=== PATIENT | female | born 1960 | race Caucasian/White ===

== ENCOUNTER 2020-11-03 16:23 | Emergency (ER) | payer MEDICAID ==
[~2020-11-03] VITALS: Ht 172.7 cm; Wt 70.0 kg
[~2020-11-03 16:23] MED LIST: CEPH-368 PO; CIPR500T87 PO; RANI-467 PO; SULF-23 PO
--- NOTE | 2020-11-03 17:04 | NUR ---
PRODUCTION ENGINEER TRACK: PT TO ROOM FROM [facility] Addendum: 11/03/20 at 1705 by MELISSA PT TO ROOM VIA W/C
--- NOTE | 2020-11-03 17:13 | NUR ---
PT STATES NICOLAS WENT [facility] FOR HER FEET AND AND WOUNDS AND A FEW ON HER LEGS THE SIZE OF A DIME. SHE WAS CALLED BACK AND WAS ADMITTED ON THE AFTER HER BLOOD WORK CAME BACK AND WAS THERE FOR 5 DAYS THEN TRANSFERED TO [facility] ON [address] WAS THERE UNTIL July. PT WAS TOLD TO SEE PRIMARY CARE TO GET A REFERERAL TO WOUND CARE, HAS BEEN GOING BUT STATES WOUNDS ARE GETTING BETTER AND CAN'T TOLERATE WHEN THEY DEBRI THE WOUND. PT STATES HAS BEEN ON A LOT OF ANTIBIOTICS. PT STATES CAME IN TODAY BECAUSE HER LEGS ARE GETTING WORSE AND STATES THEY ARE "INFECTED" PT STATES ALSO HAS EITHER A BAD GROIN PULL OR A HERNIA.
--- NOTE | 2020-11-03 17:26 | NUR ---
PT STATES DOES USE HEROIN WEEKLY AND HER MAIN CONCERN IS LEFT FOOT SHE BELIEVES IS INFECTED PROVIDER AT BEDSIDE.
[2020-11-03 18:36] LABS: BASOPHILS % (AUTO) 1 % (0-1); EOSINOPHILS % (AUTO) 5 % (1-7); LYMPHOCYTES % (AUTO) 27 % (22-44); MEAN CORPUSCULAR HEMOGLOBIN 25.8 pg (27.0-34.8); MEAN CORPUSCULAR HGB CONC 33.5 g/dL (32.4-35.8); MEAN PLATELET VOLUME 6.4 fL (7.4-10.4); MONOCYTES % (AUTO) 7 % (2-9); NEUTROPHILS % (AUTO) 61 % (42-75); PLATELET COUNT 251 x10^3/uL (130-400); RED BLOOD COUNT 4.64 x10^6/uL (3.82-5.3); RED CELL DISTRIBUTION WIDTH 15.6 % (9.6-15.2)
--- NOTE | 2020-11-03 18:37 | NUR ---
OFF FLOOR TO ULTRASOUND
[2020-11-03 18:46] LABS: ALANINE AMINOTRANSFERASE 48 U/L (12-78); ALBUMIN 3.1 g/dL (3.4-5.0); ANION GAP 6 mmol/L (5-15); CALCIUM 8.8 mg/dL (8.5-10.1); CHLORIDE 105 mmol/L (98-107); CREATININE 0.62 mg/dL (0.55-1.02)
[2020-11-03 18:48] LABS: ALKALINE PHOSPHATASE 201 U/L (45-117); BILIRUBIN,TOTAL 0.6 mg/dL (0.2-1.0); TOTAL PROTEIN 8.5 g/dL (6.4-8.2)
--- NOTE | 2020-11-03 18:56 | NUR ---
REPORT GIVEN TO JOSE GONSALES TO ASSUME CARE OF PT.
--- NOTE | 2020-11-03 19:16 | NUR ---
Waiting for recheck/u/s report.
[2020-11-03] MEDS ORDERED: ONDANSETRON 2MG/ML, 2ML IVPush ONE (19:30)
[2020-11-03] MEDS ORDERED: MORPHINE SULFATE 4 MG/ML, 1ML IVPush PRN (19:30)
--- NOTE | 2020-11-03 19:31 | NUR ---
Pt requested to take her own tylenol/motrin, provided water. Dr beck to reassess, ok to cancel IV start and IV morphine/zofran; will po meds if needed.
[2020-11-03 19:55] VITALS: BP 152/89
== END 2020-11-03 20:01 | disposition home or self-care (01) ==
LOC: ED 19:42
DX: L03.116 Cellulitis of left lower limb (principal); L03.115 Cellulitis of right lower limb; L97.828 Non-pressure chronic ulcer of other part of left lower leg with other specified severity; L97.818 Non-pressure chronic ulcer of other part of right lower leg with other specified severity; F11.129 Opioid abuse with intoxication, unspecified; Z72.9 Problem related to lifestyle, unspecified; F17.200 Nicotine dependence, unspecified, uncomplicated
CPT/HCPCS: 36415; 80053; 85025; 93970; 99284

== ENCOUNTER 2020-11-12 08:28 | Outpatient (CLI) | payer MEDICAID | END 2020-11-12 23:59 | disposition home or self-care (01) | LOC: WOUND 08:28 | PROVIDERS: ATTEND Internal Medicine | DX: I87.333 Chronic venous hypertension (idiopathic) with ulcer and inflammation of bilateral lower extremity (principal); L89.893 Pressure ulcer of other site, stage 3; L97.512 Non-pressure chronic ulcer of other part of right foot with fat layer exposed; L97.522 Non-pressure chronic ulcer of other part of left foot with fat layer exposed; L97.412 Non-pressure chronic ulcer of right heel and midfoot with fat layer exposed; L97.222 Non-pressure chronic ulcer of left calf with fat layer exposed; L97.212 Non-pressure chronic ulcer of right calf with fat layer exposed; L97.822 Non-pressure chronic ulcer of other part of left lower leg with fat layer exposed; L97.812 Non-pressure chronic ulcer of other part of right lower leg with fat layer exposed; L03.115 Cellulitis of right lower limb; L03.116 Cellulitis of left lower limb; F11.129 Opioid abuse with intoxication, unspecified; F19.10 Other psychoactive substance abuse, uncomplicated; J44.9 Chronic obstructive pulmonary disease, unspecified; Z86.14 Personal history of Methicillin resistant Staphylococcus aureus infection; Z87.891 Personal history of nicotine dependence; Z88.1 Allergy status to other antibiotic agents; Z88.2 Allergy status to sulfonamides; Z88.8 Allergy status to other drugs, medicaments and biological substances | CPT/HCPCS: 11042; 11045; 99215 ==

== ENCOUNTER 2020-11-16 12:52 | Outpatient (CLI) | payer MEDICAID | END 2020-11-16 23:59 | disposition home or self-care (01) | LOC: WOUND 12:52 | PROVIDERS: ATTEND Internal Medicine Cardiovascular Disease | DX: I87.313 Chronic venous hypertension (idiopathic) with ulcer of bilateral lower extremity (principal); L97.222 Non-pressure chronic ulcer of left calf with fat layer exposed; L97.212 Non-pressure chronic ulcer of right calf with fat layer exposed; L97.812 Non-pressure chronic ulcer of other part of right lower leg with fat layer exposed; L03.115 Cellulitis of right lower limb; L03.116 Cellulitis of left lower limb; F19.10 Other psychoactive substance abuse, uncomplicated | CPT/HCPCS: 29580; 29581; 99215 ==

== ENCOUNTER 2020-12-03 15:09 | Inpatient (IN) | payer MEDICAID ==
[~2020-12-03] VITALS: Ht 172.7 cm; Wt 76.1 kg
--- NOTE | 2020-12-03 15:46 | NUR ---
PT CAME IN CO NON HEALING LOWER LEG ULCERS. PT WAS SENT FROM WOUND CARE. PT KEPT HER BANDAGES ON FOR OVER 2 WEEKS. PT HAS MULTIPLE NON HEALING ULCERS WITH DRAINAGE AND A FOUL ODOR ON BOTH LOWER LEGS. PT REPORTS SHE HAS BEEN DEALING WITH THESE WOUNDS FOR OVER A YEAR.
[2020-12-03] MEDS ORDERED: ACETAMINOPHEN 500 MG TABLET ONE (15:50)
[2020-12-03] MEDS ORDERED: ACETAMINOPHEN 500 MG TABLET PO ONE (16:00)
--- NOTE | 2020-12-03 16:01 | NUR ---
IV STARTED. BLOOST CULTURES X2 DRAWN
[2020-12-03 16:11] LABS: BASOPHILS % (AUTO) 0 % (0-1); EOSINOPHILS % (AUTO) 1 % (1-7); LYMPHOCYTES % (AUTO) 31 % (22-44); MEAN CORPUSCULAR HEMOGLOBIN 26.1 pg (27.0-34.8); MEAN PLATELET VOLUME 6.6 fL (7.4-10.4); MONOCYTES % (AUTO) 5 % (2-9); NEUTROPHILS % (AUTO) 64 % (42-75); PLATELET COUNT 279 x10^3/uL (130-400); RED BLOOD COUNT 4.64 x10^6/uL (3.82-5.3); RED CELL DISTRIBUTION WIDTH 15.5 % (9.6-15.2)
[2020-12-03 16:12] LABS: HCT (SEDRATE) 35.8 % (34.6-47.8)
[2020-12-03 16:23] LABS: ALBUMIN 3.5 g/dL (3.4-5.0); ANION GAP 4 mmol/L (5-15); CALCIUM 9.4 mg/dL (8.5-10.1); CHLORIDE 107 mmol/L (98-107); CREATININE 0.71 mg/dL (0.55-1.02)
[2020-12-03] MEDS ORDERED: VANCOMYCIN PER PHARMACY MC ONE (17:30)
[2020-12-03] MEDS ORDERED: POTASSIUM CHLORIDE 20 MEQ in SODIUM CHLORIDE 0.9% 250 ML IV ONE (17:30)
[2020-12-03] MEDS ORDERED: POTASSIUM CHLORIDE 20 MEQ TAB.ER.PRT PO ONE (17:30)
[2020-12-03] MEDS ORDERED: AMPICILLIN/SULBACTAM 3 GM in SODIUM CHLORIDE 0.9% 100 ML IV ONE (17:30)
[2020-12-03] MEDS ORDERED: VANCOMYCIN 1,800 MG in SODIUM CHLORIDE 0.9% 250 ML IV ONE (18:00)
[2020-12-03] MEDS ORDERED: VANCOMYCIN PER PHARMACY MC PRN (18:30)
[2020-12-03] MEDS ORDERED: POLYETHYLENE GLYCOL 17 GM PACKET PO PRN (18:30)
[2020-12-03] MEDS ORDERED: ONDANSETRON ODT 4 MG PO PRN (18:30)
[2020-12-03] MEDS ORDERED: KETOROLAC 30 MG/1 ML IV PRN (18:30)
[2020-12-03] MEDS ORDERED: ENALAPRILAT 1.25 MG/ML, 2ML IVPush PRN (18:30)
[2020-12-03] MEDS ORDERED: ONDANSETRON 2MG/ML, 2ML IVPush PRN (18:30)
[2020-12-03] MEDS ORDERED: BISACODYL 10 MG SUPP PR PRN (18:30)
[2020-12-03] MEDS ORDERED: ACETAMINOPHEN 325 MG TABLET PO PRN (18:30)
[2020-12-03] MEDS ORDERED: LABETALOL 5MG/ML, 20ML IVPush PRN (18:30)
[2020-12-03 18:31] VITALS: BP 168/101
[2020-12-03] MEDS: morphine SULFATE 10 MG/ML, 1ML IVPush PRN ×2 (18:42→22:12)
[2020-12-03] MEDS: ENOXAPARIN 40 MG/0.4 ML SQ SCH (18:43)
[2020-12-03 19:40] VITALS: BP 143/78
[2020-12-03] MEDS ORDERED: PHARMACOKINETIC MONITORING MC PRN (20:00)
[2020-12-03] MEDS ORDERED: PHARMACOKINETIC CONSULTATION MC ONE (20:00)
[2020-12-03] MEDS: NICOTINE 7 MG/24 HR PATCH.TD24 TD SCH (20:28)
[2020-12-03] MEDS: NS + 20MEQ KCL 1,000 ML IV SCH (20:28)
[2020-12-03] MEDS: PIPERACILLIN/TAZO 3.375 GM in DEXTROSE 5% 50 ML IV SCH (20:28)
[2020-12-03] MEDS: POTASSIUM CHLORIDE 20 MEQ TAB.ER.PRT PO SCH (22:13)
[2020-12-03] MEDS: IRON SUCROSE COMPLEX 100MG/5ML IV SCH (23:32)
[2020-12-04] MEDS: morphine SULFATE 10 MG/ML, 1ML IVPush PRN ×4 (01:40→19:54)
[2020-12-04 02:15] VITALS: BP 150/76
[2020-12-04] MEDS: PIPERACILLIN/TAZO 3.375 GM in DEXTROSE 5% 50 ML IV SCH ×4 (03:01→22:57)
[2020-12-04] MEDS ORDERED: DIPHENHYDRAMINE 25 MG CAPSULE PO ONE (04:30)
[2020-12-04] MEDS: NS + 20MEQ KCL 1,000 ML IV SCH ×2 (05:21→20:40)
[2020-12-04 05:57] LABS: BASOPHILS % (AUTO) 1 % (0-1); EOSINOPHILS % (AUTO) 3 % (1-7); LYMPHOCYTES % (AUTO) 31 % (22-44); MEAN CORPUSCULAR HEMOGLOBIN 26.4 pg (27.0-34.8); MEAN CORPUSCULAR HGB CONC 34.5 g/dL (32.4-35.8); MEAN PLATELET VOLUME 6.6 fL (7.4-10.4); MONOCYTES % (AUTO) 8 % (2-9); NEUTROPHILS % (AUTO) 57 % (42-75); PLATELET COUNT 244 x10^3/uL (130-400); RED BLOOD COUNT 4.71 x10^6/uL (3.82-5.3); RED CELL DISTRIBUTION WIDTH 15.6 % (9.6-15.2)
[2020-12-04 06:09] LABS: CHLORIDE 106 mmol/L (98-107)
[2020-12-04 06:13] LABS: ANION GAP 4 mmol/L (5-15); CALCIUM 9.1 mg/dL (8.5-10.1); CREATININE 0.47 mg/dL (0.55-1.02)
[2020-12-04 07:01] VITALS: BP 171/90
[2020-12-04] MEDS: IRON SUCROSE COMPLEX 100MG/5ML IV SCH (08:22)
[2020-12-04] MEDS: POTASSIUM CHLORIDE 20 MEQ TAB.ER.PRT PO SCH ×2 (08:22→11:58)
[2020-12-04] MEDS: VANCOMYCIN 1,400 MG in SODIUM CHLORIDE 0.9% 250 ML IV SCH ×2 (08:22→20:40)
[2020-12-04] MEDS: SENNA/DOCUSATE TABLET PO SCH (08:23)
[2020-12-04] MEDS ORDERED: MAGNESIUM SULFATE PMX 2GM/50ML 50 ML IV ONE (09:30)
[2020-12-04 13:54] VITALS: BP 156/90
[2020-12-04] MEDS ORDERED: GADOTERATE 7.5 MMOL/15ML SYR ONE (14:35)
[2020-12-04 19:17] VITALS: BP 174/90
[2020-12-04] MEDS: NICOTINE 7 MG/24 HR PATCH.TD24 TD SCH (19:53)
[2020-12-04] MEDS: ENOXAPARIN 40 MG/0.4 ML SQ SCH (19:54)
[2020-12-04] MEDS ORDERED: MELATONIN 5 MG TABLET PO ONE (23:00)
[2020-12-05] MEDS: morphine SULFATE 10 MG/ML, 1ML IVPush PRN ×6 (00:31→23:51)
[2020-12-05 00:44] VITALS: BP 168/86
[2020-12-05] MEDS: NS + 20MEQ KCL 1,000 ML IV SCH ×2 (04:00→23:22)
[2020-12-05] MEDS: PIPERACILLIN/TAZO 3.375 GM in DEXTROSE 5% 50 ML IV SCH ×4 (04:56→23:22)
[2020-12-05 06:00] LABS: BASOPHILS % (AUTO) 1 % (0-1); EOSINOPHILS % (AUTO) 2 % (1-7); LYMPHOCYTES % (AUTO) 28 % (22-44); MEAN CORPUSCULAR HEMOGLOBIN 26.4 pg (27.0-34.8); MEAN CORPUSCULAR HGB CONC 34.2 g/dL (32.4-35.8); MEAN PLATELET VOLUME 6.9 fL (7.4-10.4); MONOCYTES % (AUTO) 8 % (2-9); NEUTROPHILS % (AUTO) 62 % (42-75); PLATELET COUNT 309 x10^3/uL (130-400); RED BLOOD COUNT 5.39 x10^6/uL (3.82-5.3); RED CELL DISTRIBUTION WIDTH 15.4 % (9.6-15.2)
[2020-12-05 06:06] LABS: CHLORIDE 102 mmol/L (98-107)
[2020-12-05 06:15] LABS: ALANINE AMINOTRANSFERASE 39 U/L (12-78); ALBUMIN 3.5 g/dL (3.4-5.0); ALKALINE PHOSPHATASE 167 U/L (45-117); ANION GAP 7 mmol/L (5-15); BILIRUBIN,TOTAL 0.8 mg/dL (0.2-1.0); CALCIUM 9.5 mg/dL (8.5-10.1); CREATININE 0.64 mg/dL (0.55-1.02); TOTAL PROTEIN 9.4 g/dL (6.4-8.2)
[2020-12-05] MEDS ORDERED: POTASSIUM CHLORIDE 20 MEQ TAB.ER.PRT PO ONE (07:00)
[2020-12-05] MEDS: POTASSIUM CHLORIDE 20 MEQ TAB.ER.PRT PO SCH (07:17)
[2020-12-05] MEDS: IRON SUCROSE COMPLEX 100MG/5ML IV SCH (07:18)
[2020-12-05 07:49] VITALS: BP 148/82
[2020-12-05] MEDS ORDERED: GADOTERATE 7.5 MMOL/15ML SYR ONE (08:20)
[2020-12-05] MEDS: SENNA/DOCUSATE TABLET PO SCH (08:53)
[2020-12-05] MEDS: VANCOMYCIN 1,400 MG in SODIUM CHLORIDE 0.9% 250 ML IV SCH ×2 (09:11→21:05)
[2020-12-05 12:25] VITALS: BP 150/85
[2020-12-05 20:04] VITALS: BP 161/92
[2020-12-05] MEDS: NICOTINE 7 MG/24 HR PATCH.TD24 TD SCH (20:16)
[2020-12-05] MEDS: ENOXAPARIN 40 MG/0.4 ML SQ SCH (20:17)
[2020-12-05] MEDS ORDERED: ZOLPIDEM 5MG TABLET PO SCH (21:00)
[2020-12-06] MEDS ORDERED: DIPHENHYDRAMINE 50 MG/ML, 1ML IVPush ONE (02:00)
[2020-12-06] MEDS: PIPERACILLIN/TAZO 3.375 GM in DEXTROSE 5% 50 ML IV SCH ×2 (05:33→11:00)
[2020-12-06] MEDS: morphine SULFATE 10 MG/ML, 1ML IVPush PRN ×2 (05:45→15:20)
[2020-12-06] MEDS ORDERED: EPINEPHRINE 1 MG/ML, 1ML ONE (06:40)
[2020-12-06] MEDS ORDERED: BUPIVACAINE/PF 0.5% ONE (06:40)
[2020-12-06] MEDS ORDERED: CHLORHEXIDINE 15 ML UDC ONE (07:03)
[2020-12-06] MEDS ORDERED: MIDAZOLAM 1 MG/ML, 2ML ONE (07:13)
[2020-12-06] MEDS ORDERED: FENTANYL PF 100 MCG/2ML ONE ×3 (07:14→07:56)
[2020-12-06] MEDS ORDERED: hydrALAzine 20 MG/ML, 1ML IV PRN (07:30)
[2020-12-06] MEDS ORDERED: ACETAMINOPHEN 325 MG TABLET PO PRN (07:30)
[2020-12-06] MEDS ORDERED: OXYcodone 5 MG/5 ML ORAL.SOL UDC PO PRN (07:30)
[2020-12-06] MEDS ORDERED: PROMETHAZINE 25 MG/ML, 1ML IVPush PRN (07:30)
[2020-12-06] MEDS ORDERED: HYDROmorphone 1 MG/ML, 1ML INJ IVPush PRN (07:30)
[2020-12-06] MEDS ORDERED: ONDANSETRON 2MG/ML, 2ML IVPush PRN (07:30)
[2020-12-06] MEDS ORDERED: LABETALOL 5MG/ML, 20ML IV PRN (07:30)
[2020-12-06] MEDS ORDERED: EPHEDRINE 50 MG/ML, 1ML IVPush PRN (07:30)
[2020-12-06] MEDS ORDERED: ONDANSETRON 2MG/ML, 2ML ONE (07:31)
[2020-12-06] MEDS ORDERED: PROPOFOL 10 MG/ML, 20ML ONE (07:31)
[2020-12-06] MEDS ORDERED: DEXAMETHASONE 4 MG/ML, 5ML ONE (07:32)
[2020-12-06] MEDS ORDERED: KETOROLAC 30 MG/1 ML ONE (07:32)
[2020-12-06] MEDS ORDERED: LIDOCAINE-MPF 2% ,5ML ONE (07:32)
[2020-12-06] MEDS ORDERED: OXYcodone 5 MG/5 ML ORAL.SOL UDC ONE (07:56)
[2020-12-06] MEDS: FENTANYL PF 100 MCG/2ML IV PRN ×2 (08:01→08:10)
[2020-12-06] MEDS ORDERED: AMLODIPINE 5 MG TABLET PO SCH (09:00)
[2020-12-06] MEDS: IRON SUCROSE COMPLEX 100MG/5ML IV SCH (10:21)
[2020-12-06] MEDS: SENNA/DOCUSATE TABLET PO SCH (10:21)
[2020-12-06] MEDS: POTASSIUM CHLORIDE 20 MEQ TAB.ER.PRT PO SCH (10:21)
[2020-12-06] MEDS: NS + 20MEQ KCL 1,000 ML IV SCH (11:18)
[2020-12-06] MEDS: VANCOMYCIN 1,400 MG in SODIUM CHLORIDE 0.9% 250 ML IV SCH (11:18)
[2020-12-06] MEDS ORDERED: AMLO-150 PO (13:15)
[2020-12-06] MEDS ORDERED: CLIN300C9 PO ×2 (13:17)
[2020-12-06] MEDS ORDERED: CIPR500T4 PO (17:50)
[2020-12-06] MEDS ORDERED: CEPH750C9 PO (17:51)
== END 2020-12-06 15:58 | disposition home or self-care (01) | DRG 603 ==
LOC: ED 15:39 → EDIP 17:27 → 3N 18:24
PROVIDERS: ADMIT Family Medicine; ATTEND Hospitalist
PROC: 0JBQ0ZX Excision of Right Foot Subcutaneous Tissue and Fascia, Open Approach, Diagnostic (ICD-10-PCS; principal; 2020-12-06 07:30)
DX: L03.115 Cellulitis of right lower limb (principal); L97.319 Non-pressure chronic ulcer of right ankle with unspecified severity; L97.929 Non-pressure chronic ulcer of unspecified part of left lower leg with unspecified severity; L03.116 Cellulitis of left lower limb; R71.8 Other abnormality of red blood cells; E87.6 Hypokalemia; F17.210 Nicotine dependence, cigarettes, uncomplicated; I10 Essential (primary) hypertension; J44.9 Chronic obstructive pulmonary disease, unspecified; Z86.14 Personal history of Methicillin resistant Staphylococcus aureus infection; Z98.891 History of uterine scar from previous surgery; Z80.9 Family history of malignant neoplasm, unspecified; Z88.1 Allergy status to other antibiotic agents; Z88.2 Allergy status to sulfonamides; Z88.8 Allergy status to other drugs, medicaments and biological substances
CPT/HCPCS: 36415; 84145; 99285; J3490; S0020; 80048; 80053; 80202; 82040; 82728; 83036; 83540; 83550; 83605; 83735; 84100; 84466; 85025; 85651; 86140; 87040; 87070; 87077; 87102; 87186; 87205; 87635; 88304; 93922; G0378; J0171; J0295; J1100; J1650; J1756; J1885; J2250; J2405; J2543; J2704; J3010; J3370; J3480; A9575; J2270; J3475; J7050; Q0163

== ENCOUNTER → 2020-12-03 | Outpatient (CLI) | payer MEDICAID | END | disposition home or self-care (01) | LOC: WOUND 09:35 | PROVIDERS: ATTEND Internal Medicine | DX: I87.313 Chronic venous hypertension (idiopathic) with ulcer of bilateral lower extremity (principal); L89.893 Pressure ulcer of other site, stage 3; L97.812 Non-pressure chronic ulcer of other part of right lower leg with fat layer exposed; L97.822 Non-pressure chronic ulcer of other part of left lower leg with fat layer exposed; L97.522 Non-pressure chronic ulcer of other part of left foot with fat layer exposed; L97.512 Non-pressure chronic ulcer of other part of right foot with fat layer exposed; L97.412 Non-pressure chronic ulcer of right heel and midfoot with fat layer exposed; L97.222 Non-pressure chronic ulcer of left calf with fat layer exposed; L97.212 Non-pressure chronic ulcer of right calf with fat layer exposed; L03.115 Cellulitis of right lower limb; L03.116 Cellulitis of left lower limb; F19.10 Other psychoactive substance abuse, uncomplicated; L98.8 Other specified disorders of the skin and subcutaneous tissue; F11.129 Opioid abuse with intoxication, unspecified; Z87.891 Personal history of nicotine dependence | CPT/HCPCS: 99215 ==

== ENCOUNTER 2020-12-12 14:13 | Outpatient (CLI) | payer MEDICAID ==
[~2020-12-12 14:13] MED LIST changes: +AMLO-150 PO; +CEPH750C9 PO; +CIPR500T4 PO; +CLIN300C9 PO
== END 2020-12-12 23:59 | disposition home or self-care (01) ==
LOC: WOUND 14:13
PROVIDERS: ATTEND Internal Medicine
DX: I87.333 Chronic venous hypertension (idiopathic) with ulcer and inflammation of bilateral lower extremity (principal); L97.812 Non-pressure chronic ulcer of other part of right lower leg with fat layer exposed; L97.222 Non-pressure chronic ulcer of left calf with fat layer exposed; L97.212 Non-pressure chronic ulcer of right calf with fat layer exposed; L89.893 Pressure ulcer of other site, stage 3; L97.512 Non-pressure chronic ulcer of other part of right foot with fat layer exposed; L97.522 Non-pressure chronic ulcer of other part of left foot with fat layer exposed; L97.412 Non-pressure chronic ulcer of right heel and midfoot with fat layer exposed; L97.422 Non-pressure chronic ulcer of left heel and midfoot with fat layer exposed; L03.115 Cellulitis of right lower limb; L03.116 Cellulitis of left lower limb; J44.9 Chronic obstructive pulmonary disease, unspecified; F19.10 Other psychoactive substance abuse, uncomplicated; Z86.14 Personal history of Methicillin resistant Staphylococcus aureus infection; Z87.891 Personal history of nicotine dependence; Z98.890 Other specified postprocedural states
CPT/HCPCS: 11042; 97597; 97598

== ENCOUNTER → 2020-12-19 | Outpatient (CLI) | payer MEDICAID | END | disposition home or self-care (01) | LOC: WOUND 12:56 | PROVIDERS: ATTEND Internal Medicine | DX: I87.333 Chronic venous hypertension (idiopathic) with ulcer and inflammation of bilateral lower extremity (principal); L89.893 Pressure ulcer of other site, stage 3; L97.512 Non-pressure chronic ulcer of other part of right foot with fat layer exposed; L97.522 Non-pressure chronic ulcer of other part of left foot with fat layer exposed; L97.412 Non-pressure chronic ulcer of right heel and midfoot with fat layer exposed; L97.222 Non-pressure chronic ulcer of left calf with fat layer exposed; L97.212 Non-pressure chronic ulcer of right calf with fat layer exposed; L97.822 Non-pressure chronic ulcer of other part of left lower leg with fat layer exposed; L97.812 Non-pressure chronic ulcer of other part of right lower leg with fat layer exposed; L03.115 Cellulitis of right lower limb; L03.116 Cellulitis of left lower limb; F11.129 Opioid abuse with intoxication, unspecified; F19.10 Other psychoactive substance abuse, uncomplicated; Z86.14 Personal history of Methicillin resistant Staphylococcus aureus infection; Z87.891 Personal history of nicotine dependence; Z88.1 Allergy status to other antibiotic agents; Z88.2 Allergy status to sulfonamides; Z88.8 Allergy status to other drugs, medicaments and biological substances | CPT/HCPCS: 11042; 11045 ==

== ENCOUNTER 2020-12-26 13:50 | Outpatient (CLI) | payer MEDICAID | END 2020-12-26 23:59 | disposition home or self-care (01) | LOC: WOUND 13:50 | PROVIDERS: ATTEND Internal Medicine | DX: I87.333 Chronic venous hypertension (idiopathic) with ulcer and inflammation of bilateral lower extremity (principal); L97.522 Non-pressure chronic ulcer of other part of left foot with fat layer exposed; L97.412 Non-pressure chronic ulcer of right heel and midfoot with fat layer exposed; L97.812 Non-pressure chronic ulcer of other part of right lower leg with fat layer exposed; L97.822 Non-pressure chronic ulcer of other part of left lower leg with fat layer exposed; L97.222 Non-pressure chronic ulcer of left calf with fat layer exposed; L97.212 Non-pressure chronic ulcer of right calf with fat layer exposed; L03.115 Cellulitis of right lower limb; L03.116 Cellulitis of left lower limb; F11.129 Opioid abuse with intoxication, unspecified; J44.9 Chronic obstructive pulmonary disease, unspecified; F19.10 Other psychoactive substance abuse, uncomplicated; Z86.14 Personal history of Methicillin resistant Staphylococcus aureus infection; Z87.891 Personal history of nicotine dependence; Z88.1 Allergy status to other antibiotic agents; Z88.2 Allergy status to sulfonamides; Z88.8 Allergy status to other drugs, medicaments and biological substances | CPT/HCPCS: 97597; 97598 ==

== ENCOUNTER → 2021-01-02 | Outpatient (CLI) | payer MEDICAID | END | disposition home or self-care (01) | LOC: WOUND 09:00 | PROVIDERS: ATTEND Internal Medicine | DX: I87.333 Chronic venous hypertension (idiopathic) with ulcer and inflammation of bilateral lower extremity (principal); L97.522 Non-pressure chronic ulcer of other part of left foot with fat layer exposed; L97.222 Non-pressure chronic ulcer of left calf with fat layer exposed; L97.212 Non-pressure chronic ulcer of right calf with fat layer exposed; L97.822 Non-pressure chronic ulcer of other part of left lower leg with fat layer exposed; L97.812 Non-pressure chronic ulcer of other part of right lower leg with fat layer exposed; L03.115 Cellulitis of right lower limb; L03.116 Cellulitis of left lower limb; F11.129 Opioid abuse with intoxication, unspecified; F19.10 Other psychoactive substance abuse, uncomplicated; Z86.14 Personal history of Methicillin resistant Staphylococcus aureus infection; Z87.891 Personal history of nicotine dependence; Z88.1 Allergy status to other antibiotic agents; Z88.2 Allergy status to sulfonamides; Z88.8 Allergy status to other drugs, medicaments and biological substances | CPT/HCPCS: 97597; 97598 ==

== ENCOUNTER 2021-01-09 10:11 | Outpatient (CLI) | payer MEDICAID | END 2021-01-09 23:59 | disposition home or self-care (01) | LOC: WOUND 10:11 | PROVIDERS: ATTEND Internal Medicine | DX: I87.333 Chronic venous hypertension (idiopathic) with ulcer and inflammation of bilateral lower extremity (principal); L97.522 Non-pressure chronic ulcer of other part of left foot with fat layer exposed; L97.812 Non-pressure chronic ulcer of other part of right lower leg with fat layer exposed; L97.822 Non-pressure chronic ulcer of other part of left lower leg with fat layer exposed; L97.222 Non-pressure chronic ulcer of left calf with fat layer exposed; L97.212 Non-pressure chronic ulcer of right calf with fat layer exposed; L03.115 Cellulitis of right lower limb; L03.116 Cellulitis of left lower limb; F11.129 Opioid abuse with intoxication, unspecified; J44.9 Chronic obstructive pulmonary disease, unspecified; F19.10 Other psychoactive substance abuse, uncomplicated; Z86.14 Personal history of Methicillin resistant Staphylococcus aureus infection; Z87.891 Personal history of nicotine dependence; Z88.1 Allergy status to other antibiotic agents; Z88.2 Allergy status to sulfonamides; Z88.8 Allergy status to other drugs, medicaments and biological substances | CPT/HCPCS: 97597; 97598 ==

== ENCOUNTER 2021-01-16 09:01 | Outpatient (CLI) | payer MEDICAID | END 2021-01-16 23:59 | disposition home or self-care (01) | LOC: WOUND 09:01 | PROVIDERS: ATTEND Internal Medicine | DX: I87.333 Chronic venous hypertension (idiopathic) with ulcer and inflammation of bilateral lower extremity (principal); L97.522 Non-pressure chronic ulcer of other part of left foot with fat layer exposed; L97.812 Non-pressure chronic ulcer of other part of right lower leg with fat layer exposed; L97.822 Non-pressure chronic ulcer of other part of left lower leg with fat layer exposed; L97.222 Non-pressure chronic ulcer of left calf with fat layer exposed; L97.212 Non-pressure chronic ulcer of right calf with fat layer exposed; L03.115 Cellulitis of right lower limb; L03.116 Cellulitis of left lower limb; F11.129 Opioid abuse with intoxication, unspecified; J44.9 Chronic obstructive pulmonary disease, unspecified; F19.10 Other psychoactive substance abuse, uncomplicated; Z86.14 Personal history of Methicillin resistant Staphylococcus aureus infection; Z87.891 Personal history of nicotine dependence; Z88.1 Allergy status to other antibiotic agents; Z88.2 Allergy status to sulfonamides; Z88.8 Allergy status to other drugs, medicaments and biological substances | CPT/HCPCS: 97597; 97598 ==

== ENCOUNTER 2021-02-10 16:37 | Inpatient (IN) | payer MEDICAID ==
[~2021-02-10] VITALS: Ht 172.7 cm; Wt 73.0 kg
[2021-02-14 08:13] VITALS: BP 166/101
== END 2021-02-14 11:19 | disposition home or self-care (01) | DRG 602 ==
LOC: ED 20:49 → EDIP 21:12 → 3N 22:38
PROVIDERS: ADMIT Family Medicine; ATTEND Hospitalist
DX: L03.115 Cellulitis of right lower limb (principal); L89.93 Pressure ulcer of unspecified site, stage 3; L89.94 Pressure ulcer of unspecified site, stage 4; L88 Pyoderma gangrenosum; L97.909 Non-pressure chronic ulcer of unspecified part of unspecified lower leg with unspecified severity; I83.009 Varicose veins of unspecified lower extremity with ulcer of unspecified site; I10 Essential (primary) hypertension; F17.200 Nicotine dependence, unspecified, uncomplicated; F11.21 Opioid dependence, in remission; E87.6 Hypokalemia; B18.2 Chronic viral hepatitis C; Z79.899 Other long term (current) drug therapy; Z88.8 Allergy status to other drugs, medicaments and biological substances